=== PATIENT | male | born 1990 | race African-American/Black ===

== ENCOUNTER 2018-07-22 07:11 | Emergency (ER) | payer OTHER | END 2018-07-22 07:49 | disposition home or self-care (01) | LOC: M ED 07:11 | DX: S90.121A Contusion of right lesser toe(s) without damage to nail, initial encounter (principal); M79.671 Pain in right foot; M79.672 Pain in left foot; S90.122A Contusion of left lesser toe(s) without damage to nail, initial encounter; X58.XXXA Exposure to other specified factors, initial encounter; Y92.84 Military training ground as the place of occurrence of the external cause; Y93.9 Activity, unspecified; Y99.1 Military activity | CPT/HCPCS: 99282 ==